=== PATIENT | female | born 1980 | race Two or more races ===

== ENCOUNTER 2017-03-01 13:48 | Emergency (ER) | payer SELFPAY ==
[2017-03-01 14:00] VITALS: BP 124/78
[2017-03-01] MEDS ORDERED: Sodium Chloride 0.9% 10 ML Syringe FLUSH PRN (14:08)
--- NOTE | 2017-03-01 14:16 | EDM.PDOC ---
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 She is not exactly sure on the gestations she has irregular periods and her last one was 7 months ago. She had some cramping like a period this morning and then she had some bleeding with some clots. She has no nausea or vomiting. She has no fever, chills, abdominal pain or dysuria. Onset: Gradual Duration: Hour(s): (Today) Location: Reports: Pelvis Quality: Reports: Other (cramping) Severity: Moderate Improves with: Reports: None Worsens with: Reports: None Associated Symptoms: Reports: No Other Symptoms - Related Data Allergies Allergy/AdvReac Type Severity Reaction Status Date / Time No Known Allergies Allergy Verified 03/09/14 14:40 Home Meds: Home Meds . [No Known Home Meds] 03/01/17 [History] Past Medical History - Past Health History Medical/Surgical History: Denies Medical/Surgical History Social & Family History - Tobacco Use Smoking Status *Q: Never Smoker Second Hand Smoke Exposure: No - Caffeine Use Caffeine Use: Reports: Coffee, Soda - Alcohol Use Days Per Week of Alcohol Use: 0 - Recreational Drug Use Recreational Drug Use: No ED ROS GENERAL - Review of Systems Review Of Systems: See Below Constitutional: Reports: No Symptoms HEENT: Reports: No Symptoms Respiratory: Reports: No Symptoms Cardiovascular: Reports: No Symptoms Endocrine: Reports: No Symptoms GI/Abdominal: Reports: No Symptoms : Reports: Other (vaginal bleeding) Musculoskeletal: Reports: No Symptoms ED EXAM - Physical Exam Exam: See Below Exam Limited By: No Limitations General Appearance: Alert, No Apparent Distress Ears: Normal External Exam Nose: Normal Inspection Head: Atraumatic, Normocephalic Neck: Normal Inspection Respiratory/Chest: No Respiratory Distress, Lungs Clear, Normal Breath Sounds Cardiovascular: Regular Rate, Rhythm, No Edema, No Murmur GI/Abdominal Exam: Soft, Non-Tender, No Organomegaly, No Mass Course - Vital Signs Last Recorded V/S: Last Vital Signs Temp 97.7 F 03/01/17 13:58 Pulse 64 03/01/17 13:58 Resp 20 03/01/17 13:58 BP 124/78 03/01/17 13:58 Pulse Ox 99 03/01/17 13:58 - Orders/Labs/Meds Orders: Active Orders 24 hr Category Date Time Status Pelvic Exam, Set Up [RC] ASDIRECTED Care 03/01/17 14:09 Active Peripheral IV Care [RC] . DIRECTED Care 03/01/17 14:08 Inactive OB Transvaginal [US] Stat Exams 03/01/17 14:09 Taken ABO/RH TYPE [BBK] Stat Lab 03/01/17 14:20 Results PATIENT RETYPE [BBK] Stat Lab 03/01/17 14:20 Results Peripheral IV Insertion Adult [OM.PC] Stat Oth 03/01/17 14:08 Ordered Labs: Laboratory Tests 03/01/17 03/01/17 03/01/17 Range/Units 14:20 14:20 14:20 WBC 6.93 (3.98-10.04) K/mm3 RBC 4.39 (3.98-5.22) M/mm3 Hgb 13.4 (11.2-15.7) gm/L Hct 39.1 (34.1-44.9) % MCV 89.1 (79.4-94.8) fl MCH 30.5 (25.6-32.2) pg MCHC 34.3 (32.2-35.5) g/dl RDW Std Deviation 42.9 (36.4-46.3) fL Plt Count 285 (182-369) K/mm3 MPV 10.1 (9.4-12.3) fl Neut % (Auto) 56.1 (34.0-71.1) % Lymph % (Auto) 36.1 (19.3-51.7) % [place] % (Auto) 5.9 (4.7-12.5) % Eos % (Auto) 1.7 (0.7-5.8) Baso % (Auto) 0.1 (0.1-1.2) % Neut # (Auto) 3.88 (1.56-6.13) K/mm3 Lymph # (Auto) 2.50 (1.18-3.74) K/mm3 [place] # (Auto) 0.41 H (0.24-0.36) K/mm3 Eos # (Auto) 0.12 (0.04-0.36) K/mm3 Baso # (Auto) 0.01 (0.01-0.08) K/mm3 HCG, Quant 3315.0 mIU/mL Blood Type O POSITIVE Meds: Medications Discontinued Medications Generic Name Dose Route Start Last Admin Trade Name Freq PRN Reason Stop Dose Admin Sodium Chloride 10 ml 03/01/17 14:08 Saline Flush FLUSH ASDIRECTED PRN Keep Vein Open - Re-Assessments/Exams Free Text/Narrative Re-Assessment/Exam: 03/01/17 14:16 I ordered labs, pelvic exam and an US. 03/01/17 16:00 Her pelvic exam showed a closed cervical os with some bleeding. Her CBC looks good. She is O positive. Her quant HCG was 3315. The US showed no IUP. She will need to follow up for serial quants with Dr Johnson. This could be an , ectopic or early pergnancy. I feel it is more the . Departure - Departure Time of Disposition: 16:05 Disposition: Home, Self-Care 01 Condition: Good Clinical Impression: Complete - Discharge Information Referrals: Alex Johnson MD [Physician] - 1 Week Forms: ED Department Discharge Additional Instructions: Follow up with Dr Johnson next week. Please return if you have more pain or bleeding. - My Orders Last 24 Hours: My Active Orders 03/01/17 14:08 Peripheral IV Care [RC] . DIRECTED Peripheral IV Insertion Adult [OM.PC] Stat 03/01/17 14:09 Pelvic Exam, Set Up [RC] ASDIRECTED OB Transvaginal [US] Stat 03/01/17 14:20 ABO/RH TYPE [BBK] Stat PATIENT RETYPE [BBK] Stat - Assessment/Plan Last 24 Hours: My Active Orders 03/01/17 14:08 Peripheral IV Care [RC] . DIRECTED Peripheral IV Insertion Adult [OM.PC] Stat 03/01/17 14:09 Pelvic Exam, Set Up [RC] ASDIRECTED OB Transvaginal [US] Stat 03/01/17 14:20 ABO/RH TYPE [BBK] Stat PATIENT RETYPE [BBK] Stat
--- NOTE | 2017-03-02 08:36 | US ---
First trimester obstetrical ultrasound: Multiple real-time images were obtained transvaginally. No intrauterine gestational sac is seen. Cyst noted within the left ovary measuring 3.6 cm. No adnexal abnormalities are appreciated. No free fluid is seen. Impression: 1. No intrauterine gestational sac or adnexal abnormality is seen. If patient has positive test findings most likely due to miscarriage. Depending on patient's beta hCG, differential includes too early to see, and unlikely nonvisualized ectopic . 2. 3.6 cm cyst within the left ovary. Diagnostic code #3 I agree with preliminary report issued by [facility] ([facility] preliminary report dictated on 03/01/17, 4:33 PM Central Time)
== END 2017-03-01 16:07 | disposition home or self-care (01) ==
LOC: JD.ED 13:48
DX: O03.9 Complete or unspecified spontaneous abortion without complication (principal)
CPT/HCPCS: 36415; 76817; 76817-26; 84702; 85025; 86900; 86901; 99282; 99284-25

== ENCOUNTER 2019-10-26 07:55 | Day surgery (SDC) | payer BC, OTHER ==
[2019-10-26] MEDS ORDERED: Metoclopramide 10 MG/2 ML SDV IVPUSH ONE (08:10)
[2019-10-26] MEDS ORDERED: Dextrose 5%-0.9% NaCl 1,000 ML IV SCH (08:15)
--- NOTE | 2019-10-26 08:25 | EDM.PDOC ---
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 She has by herself.) - History of Present Illness INITIAL COMMENTS - FREE TEXT/NARRATIVE: 39-year-old female with [place] descent presents to the ED with heavy bleeding per vagina. She was told on October 15 that she had demise at approximately 16 weeks gestation and that she would be going on to a miscarriage. She states that the bleeding became much more severe overnight passing large amounts of clots and associated lower abdominal cramping pain and right-sided low back pain. She would be 4 para 2. She had 1 miscarriage in between the 2 pregnancies that did not require D&C. The ultrasounds were done outside the hospital and therefore I do not have an exact gestational age of the demised fetus. She states she is been up all night due to cramping pain. She states she would not have soaked a whole pad per hour but is passing very large clots when she stands up to go to the bathroom. No fever or chills. She has had 1 normal vaginal delivery and 1 delivered by C- section. Current data conversion operator is Dr. Hernandez Onset: Other (Patient has bleeding been bleeding per vagina for the last 10 days but today it is much heavier with large amounts of clots.) Onset Date: 10/24/19 Duration: Day(s):, Getting Worse Location: Reports: Other (Bleeding per vagina with increased lower abdominal cramping pain and into her back) Quality: Reports: Other Severity: Moderate (Still cramp-like pain associate with menstrual bleeding) Improves with: Reports: None Worsens with: Reports: None Context: Reports: Other (Apparently she knows she has demise diagnosed by ultrasound 8 days ago at 16 weeks gestation according to the patient.). Denies : Activity, Exercise, Lifting, Sick Contact, Trauma Associated Symptoms: Reports: Other. 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 this morning). Denies: Fever , Chills HEENT: Reports: No Symptoms Respiratory: Reports: No Symptoms Cardiovascular: Reports: No Symptoms Endocrine: Reports: Fatigue GI/Abdominal: Reports: Abdominal Pain (Intermittent lower abdominal cramping pain characteristic of menstrual pain) : Reports: Frequency, Other (The bleeding per vagina overnight with passage of large maroon clots) Musculoskeletal: Reports: Back Pain (Right lower back pain) Skin: Reports: No Symptoms Neurological: Reports: No Symptoms Psychiatric: Reports: No Symptoms Hematologic/Lymphatic: Reports: No Symptoms Immunologic: Reports: No Symptoms ED EXAM - Physical Exam Exam: See Below Exam Limited By: Other (Temperature is listed at 36.2 which is unlikely to be realistic) General Appearance: Alert, WD/WN, Anxious, Mild Distress, Other Eye Exam: Bilateral Eye: Normal Inspection Throat/Mouth: Normal Inspection, Normal Lips, Normal Teeth, Normal Oropharynx ( No blepharal pallor no scleral icterus.) Head: Atraumatic, Normocephalic Neck: Normal Inspection, Supple, Non-Tender, Full Range of Motion. No: Lymphadenopathy (L), Lymphadenopathy (R) Respiratory/Chest: No Respiratory Distress, Lungs Clear, Normal Breath Sounds, No Accessory Muscle Use Cardiovascular: Normal Peripheral Pulses, Regular Rate, Rhythm, No Edema, No Gallop, No Murmur, No Rub GI/Abdominal Exam: Soft (Sounds are active in all 4 quadrants), Non-Tender, No Organomegaly, No Mass, Pelvis Stable, Abnormal Bowel Sounds, Other (Gestational uterus is felt just below the midline between the umbilicus and the pubic symphysis.) (Female) Exam: Other ([place] closed anterior uterus is slightly retroverted but good 12 weeks in size.) Heart Tones: Not [place] Movement: Not Appreciated Back Exam: Normal Inspection, Full Range of Motion. No: CVA Tenderness (R) Extremities: Normal Inspection, Normal Range of Motion, Non-Tender Neurological: Alert, Oriented, CN II-XII Intact, Normal Cognition Psychiatric: Normal Affect, Normal Mood, Anxious Skin Exam: Warm, Dry, Intact, Normal Color, No Rash Course - Vital Signs Last Recorded V/S: Last Vital Signs Temp 36.2 C 10/26/19 08:10 Pulse 71 10/26/19 08:10 Resp 16 10/26/19 08:10 BP 122/77 10/26/19 08:10 Pulse Ox 97 10/26/19 08:10 - Orders/Labs/Meds Orders: Active Orders 24 hr Category Date Time Status Patient Status [ADT] Routine ADT 10/26/19 11:23 Active URINALYSIS W/MICROSCOPIC [UA W/MICROSCOPIC] [URIN] Stat Lab 10/26/19 08:11 Ordered Dextrose 5%-0.9% NaCl [Dextrose 5%-Normal Saline] 1,000 Med 10/26/19 08:15 Active ml IV ASDIRECTED Schedule Procedure [COMM] Stat Oth 10/26/19 11:28 Ordered Medication Orders Dextrose/Sodium Chloride (Dextrose 5%-Normal Saline) 1,000 mls @ 150 mls/hr IV ASDIRECTED [facility] Last Admin: 10/26/19 09:21 Dose: 150 mls/hr Labs: Laboratory Tests 10/26/19 10/26/19 10/26/19 Range/Units 08:20 08:20 08:20 WBC 7.20 (3.98-10.04) K/mm3 RBC 4.38 (3.98-5.22) M/mm3 Hgb 12.9 D (11.2-15.7) gm/dl Hct 39.3 (34.1-44.9) % MCV 89.7 (79.4-94.8) fl MCH 29.5 (25.6-32.2) pg MCHC 32.8 (32.2-35.5) g/dl RDW Std Deviation 42.7 (36.4-46.3) fL Plt Count 290 D (182-369) K/mm3 MPV 10.0 (9.4-12.3) fl Neut % (Auto) 52.0 (34.0-71.1) % Lymph % (Auto) 39.6 (19.3-51.7) % [place] % (Auto) 5.0 (4.7-12.5) % Eos % (Auto) 3.2 (0.7-5.8) Baso % (Auto) 0.1 (0.1-1.2) % Neut # (Auto) 3.74 (1.56-6.13) K/mm3 Lymph # (Auto) 2.85 (1.18-3.74) K/mm3 [place] # (Auto) 0.36 (0.24-0.36) K/mm3 Eos # (Auto) 0.23 (0.04-0.36) K/mm3 Baso # (Auto) 0.01 (0.01-0.08) K/mm3 Sodium 139 (136-145) mEq/L Potassium 3.9 (3.5-5.1) mEq/L Chloride 105 (98-107) mEq/L Carbon Dioxide 27 (21-32) mEq/L Anion Gap 10.9 (5-15) BUN 7 (7-18) mg/dL Creatinine 0.8 (0.55-1.02) mg/dL Est Cr Clr Drug Dosing 86.64 mL/min Estimated GFR (MDRD) > 60 (>60) mL/min BUN/Creatinine Ratio 8.8 L (14-18) Glucose 121 H (74-106) mg/dL Calcium 9.0 (8.5-10.1) mg/dL Total Bilirubin 0.2 (0.2-1.0) mg/dL AST 13 L (15-37) U/L ALT 15 (14-59) U/L Alkaline Phosphatase 83 (46-116) U/L Total Protein 7.5 (6.4-8.2) g/dl Albumin 3.2 L (3.4-5.0) g/dl Globulin 4.3 gm/dL Albumin/Globulin Ratio 0.7 L (1-2) HCG, Quant 1131.0 mIU/mL Blood Type Gel Antibody Screen 10/26/19 Range/Units 08:20 WBC (3.98-10.04) K/mm3 RBC (3.98-5.22) M/mm3 Hgb (11.2-15.7) gm/dl Hct (34.1-44.9) % MCV (79.4-94.8) fl MCH (25.6-32.2) pg MCHC (32.2-35.5) g/dl RDW Std Deviation (36.4-46.3) fL Plt Count (182-369) K/mm3 MPV (9.4-12.3) fl Neut % (Auto) (34.0-71.1) % Lymph % (Auto) (19.3-51.7) % [place] % (Auto) (4.7-12.5) % Eos % (Auto) (0.7-5.8) Baso % (Auto) (0.1-1.2) % Neut # (Auto) (1.56-6.13) K/mm3 Lymph # (Auto) (1.18-3.74) K/mm3 [place] # (Auto) (0.24-0.36) K/mm3 Eos # (Auto) (0.04-0.36) K/mm3 Baso # (Auto) (0.01-0.08) K/mm3 Sodium (136-145) mEq/L Potassium (3.5-5.1) mEq/L Chloride (98-107) mEq/L Carbon Dioxide (21-32) mEq/L Anion Gap (5-15) BUN (7-18) mg/dL Creatinine (0.55-1.02) mg/dL Est Cr Clr Drug Dosing mL/min Estimated GFR (MDRD) (>60) mL/min BUN/Creatinine Ratio (14-18) Glucose (74-106) mg/dL Calcium (8.5-10.1) mg/dL Total Bilirubin (0.2-1.0) mg/dL AST (15-37) U/L ALT (14-59) U/L Alkaline Phosphatase (46-116) U/L Total Protein (6.4-8.2) g/dl Albumin (3.4-5.0) g/dl Globulin gm/dL Albumin/Globulin Ratio (1-2) HCG, Quant mIU/mL Blood Type O POSITIVE Gel Antibody Screen Negative Meds: Medications Generic Name Dose Route Start Last Admin Trade Name Freq PRN Reason Stop Dose Admin Dextrose/Sodium Chloride 1,000 mls @ 150 mls/hr 10/26/19 08:15 10/26/19 09:21 Dextrose 5%-Normal Saline IV 150 mls/hr ASDIRECTED MOOKIE Administration Discontinued Medications Generic Name Dose Route Start Last Admin Trade Name Freq PRN Reason Stop Dose Admin Metoclopramide HCl 7.5 mg 10/26/19 08:10 10/26/19 09:21 Reglan IVPUSH 10/26/19 08:11 7.5 mg ONETIME ONE Administration - Radiology Interpretation Free Text/Narrative:: 39-year-old female presents to the ED with heavy bleeding per vagina. From what I can gather she has a failed at 16 weeks gestation with an ultrasound done 8 days ago at [facility] indicating no heart tones. It is unclear if she actually measured 16 weeks but clinically the uterus is about 12 weeks in size. Alexis no heart tones are identified. Plan she will have a quantitative beta hCG done with type and screen. IV is D5 normal saline at 150 mils per hour. Unfortunately she ate about 0745 hrs. this morning small quantity of egg and rice. Advised to stay n.p.o. Routine labs will be collected. At present she did not want anything for pain relief. Was given Reglan 7.5 mg IV. Will be for transvaginal ultrasound. - Re-Assessments/Exams Free Text/Narrative Re-Assessment/Exam: 10/26/19 09:38 Transvaginal ultrasound reveals a pole of weeks 5 days without any heart tones present. 10/26/19 10:54 Is revealed a white count of 7.20 with 52% neutrophils and no bands cells reported hemoglobin is 12.9 with hematocrit of 39.3. Platelet count is 290,000. Sodium is 139 with potassium of 3.9. Chloride 105 with a bicarb of 27. Anion gap is 10.9. BUN is 7 with a creatinine of 0.8. GFR is greater than 60. Glucose is 121. Calcium is 9.0 bilirubin is 0.2 AST is 13 with an ALT of 15. Alk phosphatase is 83. Total protein is 7.5 albumin fraction slightly low at 3.2. Quantitative hCG is 1131.0. 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 Maribel Hernandez and she will attend the patient in the ED. At this time the bleeding seems to have slowed slightly. She is not having much in the way of abdominal cramping. Dr. Hernandez will attend her in the ED with plan to take her to the OR for suction curettage. Departure - Departure Time of Disposition: 11:34 Disposition: DC/Tfer to Critical Access 66 Condition: Fair Clinical Impression: Incomplete - Discharge Information *PRESCRIPTION DRUG MONITORING PROGRAM REVIEWED*: Not Applicable *COPY OF PRESCRIPTION DRUG MONITORING REPORT IN PATIENT CLYDE: Not Applicable Sepsis Event Note - Evaluation Sepsis Screening Result: No Definite Risk - Focused Exam Vital Signs: Vital Signs Temp Pulse Resp BP Pulse Ox 10/26/19 08:10 36.2 C 71 16 122/77 97 Date Exam was Performed: 10/26/19 Time Exam was Performed: 11:33 - My Orders Last 24 Hours: My Active Orders 10/26/19 08:11 URINALYSIS W/MICROSCOPIC [UA W/MICROSCOPIC] [URIN] Stat 10/26/19 08:15 Dextrose 5%-0.9% NaCl [Dextrose 5%-Normal Saline] 1,000 ml IV ASDIRECTED 10/26/19 11:23 Patient Status [ADT] Routine 10/26/19 11:28 Schedule Procedure [COMM] Stat - Assessment/Plan Last 24 Hours: My Active Orders 10/26/19 08:11 URINALYSIS W/MICROSCOPIC [UA W/MICROSCOPIC] [URIN] Stat 10/26/19 08:15 Dextrose 5%-0.9% NaCl [Dextrose 5%-Normal Saline] 1,000 ml IV ASDIRECTED 10/26/19 11:23 Patient Status [ADT] Routine 10/26/19 11:28 Schedule Procedure [COMM] Stat
--- NOTE | 2019-10-26 09:37 | US ---
First trimester obstetrical ultrasound: Multiple real-time images were obtained transvaginally. Comparison: No previous imaging for current . Single intrauterine gestation is seen. Embryo is seen measuring about 8 weeks 6 days. No heart activity is seen. Ovaries appear within normal limits. Impression: 1. Embryo with age around 8 weeks 6 days. No heart activity is seen which should be visible at this time. Findings compatible with nonviable . 2. Normal ovaries. Diagnostic code #3 This report was dictated in MDT
--- NOTE | 2019-10-26 11:36 | PCM.PREANE ---
Preanesthetic Assessment - Anesthesia/Transfusion/Family Hx Anesthesia History: Prior Anesthesia Without Reaction Family History of Anesthesia Reaction: No Transfusion History: No Prior Transfusion(s) Intubation History: Unknown - Review of Systems General: No Symptoms Pulmonary: No Symptoms (asthma-last used inhaler 5-7 yrs.) Cardiovascular: No Symptoms Gastrointestinal: No Symptoms (GERD) Neurological: No Symptoms - Physical Assessment NPO Status Date: 10/26/19 NPO Status Time: 07:45 Vital Signs: Last Vital Signs Temp 36.2 C 10/26/19 08:10 Pulse 71 10/26/19 08:10 Resp 16 10/26/19 08:10 BP 122/77 10/26/19 08:10 Pulse Ox 97 10/26/19 08:10 Height: 1.65 m Weight: 83.915 kg ASA Class: 2E Mental Status: Alert & Oriented x3 Airway Class: Mallampati = 2 Dentition: Reports: Normal Dentition, Caries Thyro-Mental Finger Breadths: 3 Mouth Opening Finger Breadths: 3 ROM/Head Extension: Full Lungs: Clear to Auscultation, Normal Respiratory Effort Cardiovascular: Regular Rate, Regular Rhythm, No Murmurs - Lab Values: Laboratory Last Values WBC 7.20 K/mm3 (3.98-10.04) 10/26/19 08:20 RBC 4.38 M/mm3 (3.98-5.22) 10/26/19 08:20 Hgb 12.9 gm/dl (11.2-15.7) D 10/26/19 08:20 Hct 39.3 % (34.1-44.9) 10/26/19 08:20 MCV 89.7 fl (79.4-94.8) 10/26/19 08:20 MCH 29.5 pg (25.6-32.2) 10/26/19 08:20 MCHC 32.8 g/dl (32.2-35.5) 10/26/19 08:20 RDW Std Deviation 42.7 fL (36.4-46.3) 10/26/19 08:20 Plt Count 290 K/mm3 (182-369) D 10/26/19 08:20 MPV 10.0 fl (9.4-12.3) 10/26/19 08:20 Neut % (Auto) 52.0 % (34.0-71.1) 10/26/19 08:20 Lymph % (Auto) 39.6 % (19.3-51.7) 10/26/19 08:20 [place] % (Auto) 5.0 % (4.7-12.5) 10/26/19 08:20 Eos % (Auto) 3.2 (0.7-5.8) 10/26/19 08:20 Baso % (Auto) 0.1 % (0.1-1.2) 10/26/19 08:20 Neut # (Auto) 3.74 K/mm3 (1.56-6.13) 10/26/19 08:20 Lymph # (Auto) 2.85 K/mm3 (1.18-3.74) 10/26/19 08:20 [place] # (Auto) 0.36 K/mm3 (0.24-0.36) 10/26/19 08:20 Eos # (Auto) 0.23 K/mm3 (0.04-0.36) 10/26/19 08:20 Baso # (Auto) 0.01 K/mm3 (0.01-0.08) 10/26/19 08:20 Sodium 139 mEq/L (136-145) 10/26/19 08:20 Potassium 3.9 mEq/L (3.5-5.1) 10/26/19 08:20 Chloride 105 mEq/L (98-107) 10/26/19 08:20 Carbon Dioxide 27 mEq/L (21-32) 10/26/19 08:20 Anion Gap 10.9 (5-15) 10/26/19 08:20 BUN 7 mg/dL (7-18) 10/26/19 08:20 Creatinine 0.8 mg/dL (0.55-1.02) 10/26/19 08:20 Est Cr Clr Drug Dosing 86.64 mL/min 10/26/19 08:20 Estimated GFR (MDRD) > 60 mL/min (>60) 10/26/19 08:20 BUN/Creatinine Ratio 8.8 (14-18) L 10/26/19 08:20 Glucose 121 mg/dL (74-106) H 10/26/19 08:20 Calcium 9.0 mg/dL (8.5-10.1) 10/26/19 08:20 Total Bilirubin 0.2 mg/dL (0.2-1.0) 10/26/19 08:20 AST 13 U/L (15-37) L 10/26/19 08:20 ALT 15 U/L (14-59) 10/26/19 08:20 Alkaline Phosphatase 83 U/L (46-116) 10/26/19 08:20 Total Protein 7.5 g/dl (6.4-8.2) 10/26/19 08:20 Albumin 3.2 g/dl (3.4-5.0) L 10/26/19 08:20 Globulin 4.3 gm/dL 10/26/19 08:20 Albumin/Globulin Ratio 0.7 (1-2) L 10/26/19 08:20 HCG, Quant 1131.0 mIU/mL 10/26/19 08:20 Blood Type O POSITIVE 10/26/19 08:20 Gel Antibody Screen Negative 10/26/19 08:20 Above labs reviewed and noted and within acceptable ranges to proceed with procedure. - Allergies Allergies/Adverse Reactions: Allergies Allergy/AdvReac Type Severity Reaction Status Date / Time No Known Allergies Allergy Verified 10/26/19 08:12 - Anesthesia Plan Pre-Op Medication Ordered: None - Acknowledgements Anesthesia Type Planned: General Anesthesia Pt an Appropriate Candidate for the Planned Anesthesia: Yes Alternatives and Risks of Anesthesia Discussed w Pt/Guardian: Yes Pt/Guardian Understands and Agrees with Anesthesia Plan: Yes PreAnesthesia Questionnaire - Past Health History Medical/Surgical History: Denies Medical/Surgical History Gastrointestinal History: Reports: GERD 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 [No Known Home Meds] 10/26/19 [History] - CURRENT (IN HOUSE) MEDS Current Meds: Current Medications Dextrose/Sodium Chloride (Dextrose 5%-Normal Saline) 1,000 mls @ 150 mls/hr IV ASDIRECTED MOOKIE Last Admin: 10/26/19 09:21 Dose: 150 mls/hr Discontinued Medications Metoclopramide HCl (Reglan) 7.5 mg IVPUSH ONETIME ONE Stop: 10/26/19 08:11 Last Admin: 10/26/19 09:21 Dose: 7.5 mg
[2019-10-26] MEDS ORDERED: Lidocaine 1% 6 ML ONE (11:49)
[2019-10-26] MEDS ORDERED: Ondansetron 4 MG/2 ML SDV ONE (11:49)
[2019-10-26] MEDS ORDERED: Ketorolac 30 MG/ML SDV ONE (11:49)
[2019-10-26] MEDS ORDERED: Lactated Ringers 1,000 ML ONE ×2 (11:49→12:11)
[2019-10-26] MEDS ORDERED: Dexamethasone 4 MG/ML 5 ML MDV ONE (11:49)
[2019-10-26] MEDS ORDERED: Succinylcholine/Sod PF 100 MG/5 ML SYRINGE IV ONE (11:49)
[2019-10-26] MEDS ORDERED: Midazolam 1 MG/ML 2 ML SDV ONE (11:50)
[2019-10-26] MEDS ORDERED: Propofol 200 MG/20 ML SDV ONE (11:50)
[2019-10-26] MEDS ORDERED: fentaNYL 100 MCG/2 ML SDV ONE (11:50)
--- NOTE | 2019-10-26 11:56 | PCM.LDHP ---
L&D History of Present Illness - General Date of Service: 10/26/19 Admit Problem/Dx: Patient Status Order with Admit Dx/Problem 10/26/19 11:23 Patient Status [ADT] Routine Admission Diagnosis/Problem Admission Diagnosis/Problem Spontaneous complicated by delayed or excessive hemorrhage Source of Information: Patient - History of Present Illness Introduction:: 39 year old with known missed here with incomplete and bleeding that started a few hours ago. - Related Data Allergies/Adverse Reactions: Allergies Allergy/AdvReac Type Severity Reaction Status Date / Time No Known Allergies Allergy Verified 10/26/19 08:12 Home Medications: Home Meds . 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: , Other (See Below) Other OB/BYN History: Social & Family History - Family History Family Medical History: Noncontributory - Tobacco Use Smoking Status *Q: Never Smoker - Caffeine Use Caffeine Use: Reports: None - Living Situation & Occupation Living situation: Reports: Occupation: Unemployed H&P Review of Systems - Review of Systems: Review Of Systems: See Below General: Reports: No Symptoms HEENT: Reports: No Symptoms Pulmonary: Reports: No Symptoms Cardiovascular: Reports: No Symptoms Gastrointestinal: Reports: No Symptoms Genitourinary: Reports: No Symptoms Musculoskeletal: Reports: No Symptoms Skin: Reports: No Symptoms Psychiatric: Reports: No Symptoms Neurological: Reports: No Symptoms Hematologic/Lymphatic: Reports: No Symptoms Immunologic: Reports: No Symptoms L&D Exam - Exam Exam: See Below - Vital Signs Vital Signs: Last Vital Signs Temp 36.2 C 10/26/19 08:10 Pulse 71 10/26/19 08:10 Resp 16 10/26/19 08:10 BP 122/77 10/26/19 08:10 Pulse Ox 97 10/26/19 08:10 Weight: 83.915 kg - OB Specific Movement: Not Appreciated Heart Tones: Not [place] - Exam General: Alert, Oriented HEENT: PERRLA, Conjunctiva Clear, EACs Clear, EOMI, Hearing Intact, Mucosa Moist & [place], Nares Patent, Normal Nasal Septum, Posterior Pharynx Clear, TMs Clear Neck: Supple, Trachea Midline GI/Abdominal Exam: Normal Bowel Sounds, Soft, Non-Tender, No Organomegaly, No Distention, No Abnormal Bruit, No Mass, Pelvis Stable Rectal Exam: Normal Exam, Normal Rectal Tone Genitourinary: Normal external exam, Normal bimanual exam, Normal speculum exam Extremities: Normal Inspection, Normal Range of Motion, Non-Tender, No Pedal Edema, Normal Capillary Refill Skin: Warm, Dry, Intact Neurological: Cranial Nerves Intact, Reflexes Equal Bilateral Psychiatric: Alert, Normal Affect, Normal Mood - Patient Data Lab Results Last 24 hrs: Laboratory Results - last 24 hr 10/26/19 10/26/19 10/26/19 Range/Units 08:20 08:20 08:20 WBC 7.20 (3.98-10.04) K/mm3 RBC 4.38 (3.98-5.22) M/mm3 Hgb 12.9 D (11.2-15.7) gm/dl Hct 39.3 (34.1-44.9) % MCV 89.7 (79.4-94.8) fl MCH 29.5 (25.6-32.2) pg MCHC 32.8 (32.2-35.5) g/dl RDW Std Deviation 42.7 (36.4-46.3) fL Plt Count 290 D (182-369) K/mm3 MPV 10.0 (9.4-12.3) fl Neut % (Auto) 52.0 (34.0-71.1) % Lymph % (Auto) 39.6 (19.3-51.7) % [place] % (Auto) 5.0 (4.7-12.5) % Eos % (Auto) 3.2 (0.7-5.8) Baso % (Auto) 0.1 (0.1-1.2) % Neut # (Auto) 3.74 (1.56-6.13) K/mm3 Lymph # (Auto) 2.85 (1.18-3.74) K/mm3 [place] # (Auto) 0.36 (0.24-0.36) K/mm3 Eos # (Auto) 0.23 (0.04-0.36) K/mm3 Baso # (Auto) 0.01 (0.01-0.08) K/mm3 Sodium 139 (136-145) mEq/L Potassium 3.9 (3.5-5.1) mEq/L Chloride 105 (98-107) mEq/L Carbon Dioxide 27 (21-32) mEq/L Anion Gap 10.9 (5-15) BUN 7 (7-18) mg/dL Creatinine 0.8 (0.55-1.02) mg/dL Est Cr Clr Drug Dosing 86.64 mL/min Estimated GFR (MDRD) > 60 (>60) mL/min BUN/Creatinine Ratio 8.8 L (14-18) Glucose 121 H (74-106) mg/dL Calcium 9.0 (8.5-10.1) mg/dL Total Bilirubin 0.2 (0.2-1.0) mg/dL AST 13 L (15-37) U/L ALT 15 (14-59) U/L Alkaline Phosphatase 83 (46-116) U/L Total Protein 7.5 (6.4-8.2) g/dl Albumin 3.2 L (3.4-5.0) g/dl Globulin 4.3 gm/dL Albumin/Globulin Ratio 0.7 L (1-2) HCG, Quant 1131.0 mIU/mL Blood Type Gel Antibody Screen 10/26/19 Range/Units 08:20 WBC (3.98-10.04) K/mm3 RBC (3.98-5.22) M/mm3 Hgb (11.2-15.7) gm/dl Hct (34.1-44.9) % MCV (79.4-94.8) fl MCH (25.6-32.2) pg MCHC (32.2-35.5) g/dl RDW Std Deviation (36.4-46.3) fL Plt Count (182-369) K/mm3 MPV (9.4-12.3) fl Neut % (Auto) (34.0-71.1) % Lymph % (Auto) (19.3-51.7) % [place] % (Auto) (4.7-12.5) % Eos % (Auto) (0.7-5.8) Baso % (Auto) (0.1-1.2) % Neut # (Auto) (1.56-6.13) K/mm3 Lymph # (Auto) (1.18-3.74) K/mm3 [place] # (Auto) (0.24-0.36) K/mm3 Eos # (Auto) (0.04-0.36) K/mm3 Baso # (Auto) (0.01-0.08) K/mm3 Sodium (136-145) mEq/L Potassium (3.5-5.1) mEq/L Chloride (98-107) mEq/L Carbon Dioxide (21-32) mEq/L Anion Gap (5-15) BUN (7-18) mg/dL Creatinine (0.55-1.02) mg/dL Est Cr Clr Drug Dosing mL/min Estimated GFR (MDRD) (>60) mL/min BUN/Creatinine Ratio (14-18) Glucose (74-106) mg/dL Calcium (8.5-10.1) mg/dL Total Bilirubin (0.2-1.0) mg/dL AST (15-37) U/L ALT (14-59) U/L Alkaline Phosphatase (46-116) U/L Total Protein (6.4-8.2) g/dl Albumin (3.4-5.0) g/dl Globulin gm/dL Albumin/Globulin Ratio (1-2) HCG, Quant mIU/mL Blood Type O POSITIVE Gel Antibody Screen Negative Result Diagrams: 10/26/19 08:20 10/26/19 08:20 Problem List Initiated/Reviewed/Updated: Yes Orders Last 24hrs: Active Orders 24 hr Category Date Time Status Patient Status [ADT] Routine ADT 10/26/19 11:23 Active URINALYSIS W/MICROSCOPIC [UA W/MICROSCOPIC] [URIN] Stat Lab 10/26/19 08:11 Ordered Dextrose 5%-0.9% NaCl [Dextrose 5%-Normal Saline] 1,000 Med 10/26/19 08:15 Active ml IV ASDIRECTED Schedule Procedure [COMM] Stat Oth 10/26/19 11:28 Ordered Medication Orders Dextrose/Sodium Chloride (Dextrose 5%-Normal Saline) 1,000 mls @ 150 mls/hr IV ASDIRECTED MOOKIE Last Admin: 10/26/19 09:21 Dose: 150 mls/hr Assessment/Plan Comment:: 39 year old here with missed . Risks, benefits alternatives discussed and plan for suction dilation and curettage.
[2019-10-26] MEDS ORDERED: HYDROmorphone 0.5 MG/0.5 ML Syringe ONE (12:25)
[2019-10-26] MEDS ORDERED: ePHEDrine 50 MG/ML SDV IVPUSH PRN (12:27)
[2019-10-26] MEDS ORDERED: Albuterol 0.083% 2.5 MG/3 ML Neb Soln NEB PRN (12:27)
[2019-10-26] MEDS ORDERED: diphenhydrAMINE 50 MG/ML SDV IVPUSH PRN (12:27)
[2019-10-26] MEDS ORDERED: HYDROmorphone 0.5 MG/0.5 ML Syringe IVPUSH PRN (12:27)
[2019-10-26] MEDS ORDERED: fentaNYL 100 MCG/2 ML SDV IVPUSH PRN (12:27)
[2019-10-26] MEDS ORDERED: Ondansetron 4 MG/2 ML SDV IVPUSH PRN (12:27)
[2019-10-26] MEDS ORDERED: Phenylephrine 1 MG in Sodium Chloride 0.9% 10 ML IV SCH (12:30)
--- NOTE | 2019-10-26 12:52 | PCM.POSTAN ---
POST ANESTHESIA ASSESSMENT - MENTAL STATUS Mental Status: Alert - VITAL SIGNS Vital Signs: Last Vital Signs Temp 97.2 10/26/19 1243 Pulse 67 10/26/19 1243 Resp 15 10/26/19 1243 BP 114/68 10/26/19 1243 Pulse Ox 94% 10/26/19 1243 - RESPIRATORY Respiratory Status: Respiratory Rate WNL, Airway Patent, O2 Saturation Stable - CARDIOVASCULAR CV Status: Pulse Rate WNL, Blood Pressure Stable - GASTROINTESTINAL GI Status: No Symptoms - POST OP HYDRATION Hydration Status: Adequate & Stable
--- NOTE | 2019-10-26 12:57 | PCM.OPNOTE ---
- General Post-Op/Procedure Note Date of Surgery/Procedure: 10/26/19 Operative Procedure(s): suction dilation and curettage Findings: 10 week size uterus. Blood in vault Pre Op Diagnosis: missed with bleeding Post-Op Diagnosis: Same Anesthesia Technique: General ET Tube Primary Surgeon: Maribel Charles Anesthesia Provider: Zaida Becker Pathology: products of conception Fluid Replacement, Intraop: 800 Output, Urine Amount: 0 EBL in mLs: 100 Complications: none Condition: Good Free Text/Narrative:: Patient taken to OR. General anesthesia initiated. Placed in lithotomy. Prepped and draped in normal sterile fashion. Self retaining speculum placed. Anterior lip of cervix grasped with ring forceps. Dilated to allow passage of a 10 mm curette. Suction curettage preformed. Good thuan noted. Hemostasis noted. INstruments removed and patient taken to recovery in good condition.
--- NOTE | 2019-10-26 13:03 | PCM48HPAN ---
Post Anesthesia Note - EVALUATION WITHIN 48HRS OF ANESTHETIC Vital Signs in Normal Range: Yes Patient Participated in Evaluation: Yes Respiratory Function Stable: Yes Airway Patent: Yes Cardiovascular Function Stable: Yes Hydration Status Stable: Yes Pain Control Satisfactory: Yes Nausea and Vomiting Control Satisfactory: Yes Mental Status Recovered: Yes Vital Signs: Last Vital Signs Temp 36.2 C 10/26/19 12:43 Pulse 71 10/26/19 08:10 Resp 12 10/26/19 12:50 BP 113/71 10/26/19 12:50 Pulse Ox 96 10/26/19 12:50
[2019-10-26 13:59] VITALS: BP 109/75; PULSE 58
== END 2019-10-26 13:51 | disposition home or self-care (01) ==
LOC: JD.ED 07:55 → JD.SDS 11:29
PROVIDERS: ATTEND Obstetrics & Gynecology
DX: O02.1 Missed abortion (principal)
CPT/HCPCS: 36415; 59820; 76817; 80053; 84702; 85025; 86850; 86900; 86901; 96361; 96374; 99285; J0330; J1100; J1170; J1885; J2001; J2250; J2405; J2704; J2765; J3010; J7042; J7120; 01965; 99284

== ENCOUNTER 2020-02-24 23:39 | Emergency (ER) | payer OTHER ==
[2020-02-24 23:54] VITALS: BP 137/91; PULSE 72
--- NOTE | 2020-02-25 03:06 | EDM.PDOC ---
ED HPI GENERAL MEDICAL PROBLEM - General Chief Complaint: Respiratory Problem Stated Complaint: SOB Time Seen by Provider: 02/25/20 02:11 Source of Information: Reports: Patient History Limitations: Reports: No Limitations - History of Present Illness INITIAL COMMENTS - FREE TEXT/NARRATIVE: Mrs. Loredo is a very pleasant 40-year-old woman with a past medical history significant for suspected, although not tested, asthma, who now presents the ED stating that she has had dyspnea without wheezing or cough since yesterday morning, 02/24/2020. No recent fever. She states that she used an old albuterol MDI around noon yesterday, which improved her symptoms for much of the day, followed by [id number] Primatene Mist around 22:00 last night, which did not really help very much at all. Here in the ED, the patient's initial BP is found to be mildly elevated at 137/91, otherwise, she is hemodynamically stable, afebrile, saturating 99 to 100% on room air. Other than her respiratory issues, the patient denies recent fever, chills, sore throat, ear pain, nasal or sinus congestion, cough, chest pain, palpitations, nausea, vomiting, constipation, diarrhea, abdominal pain, urinary symptoms, recent weight gain or weight loss, recent bloody bowel movements or black bowel movements, recent joint aches, headaches, or rashes. The patient does not have a PCP. 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 - Related Data Allergies Allergy/AdvReac Type Severity Reaction Status Date / Time No Known Allergies Allergy Verified 02/24/20 23:54 Home Meds: Home Meds . 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) : 4 Para: 2 Endocrine/Metabolic History: Reports: Obesity/BMI 30+ - Past Surgical History Female Surgical History: Reports: Section (x 1) Social & Family History - Family History Family Medical History: Noncontributory - Tobacco Use Smoking Status *Q: Never Smoker - Caffeine Use Caffeine Use: Reports: Coffee - Alcohol Use Alcohol Use History: Yes Alcohol Use Frequency: Rarely - Recreational Drug Use Recreational Drug Use: No - Living Situation & Occupation Living situation: Reports: , with Spouse, with Family (2 kids) Occupation: Unemployed ED ROS GENERAL - Review of Systems Review Of Systems: Comprehensive ROS is negative, except as noted in HPI. ED EXAM, GENERAL - Physical Exam Exam: See Below Exam Limited By: No Limitations General Appearance: Alert, WD/WN, No Apparent Distress Eye Exam: Bilateral Eye: EOMI, Normal Inspection Ears: Normal External Exam, Hearing Grossly Normal Nose: Normal Inspection Throat/Mouth: Normal Inspection, Normal Lips, Normal Voice, No Airway Compromise Head: Atraumatic, Normocephalic Neck: Normal Inspection, Full Range of Motion Respiratory/Chest: No Respiratory Distress, Lungs Clear, Normal Breath Sounds, No Accessory Muscle Use. No: Decreased Breath Sounds, Crackles, Rhonchi, Wheezing, Stridor, Prolonged Expiration Cardiovascular: Normal Peripheral Pulses, Regular Rate, Rhythm, No Edema, No Gallop, No JVD, No Murmur, No Rub Peripheral Pulses: 3+: Radial (L), Radial (R) GI/Abdominal: Normal Bowel Sounds, Soft, Non-Tender, No Organomegaly, No Distention, No Abnormal Bruit, No Mass (Female) Exam: Deferred Rectal (Female) Exam: Deferred Back Exam: Normal Inspection, Full Range of Motion, NT Extremities: Normal Inspection, Normal Range of Motion, No Pedal Edema, Normal Capillary Refill Neurological: Alert, Oriented, Normal Cognition, No Motor/Sensory Deficits Psychiatric: Normal Affect Skin Exam: Warm, Dry, Intact, Normal Color, No Rash Course - Vital Signs Last Recorded V/S: Last Vital Signs Temp 36.6 C 02/24/20 23:50 Pulse 72 02/24/20 23:50 Resp 20 02/24/20 23:50 BP 137/91 H 02/24/20 23:50 Pulse Ox 99 02/24/20 23:50 - Orders/Labs/Meds Labs: Laboratory Tests 02/25/20 02/25/20 02/25/20 Range/Units 03:20 03:20 03:20 WBC 7.32 (3.98-10.04) K/mm3 RBC 4.48 (3.98-5.22) M/mm3 Hgb 13.3 (11.2-15.7) gm/dl Hct 40.2 (34.1-44.9) % MCV 89.7 (79.4-94.8) fl MCH 29.7 (25.6-32.2) pg MCHC 33.1 (32.2-35.5) g/dl RDW Std Deviation 42.0 (36.4-46.3) fL Plt Count 313 (182-369) K/mm3 MPV 9.9 (9.4-12.3) fl Neutrophils % (Manual) 45 (40-60) % Band Neutrophils % 0 (0-10) % Lymphocytes % (Manual) 50 H (20-40) % Atypical Lymphs % 0 % Monocytes % (Manual) 5 (2-10) % Eosinophils % (Manual) 0 L (0.7-5.8) % Basophils % (Manual) 0 L (0.1-1.2) Platelet Estimate Adequate Plt Morphology Comment Normal RBC Morph Comment Normal D-Dimer, Quantitative 0.74 H (0.19-0.50) mg/L Sodium 140 (136-145) mEq/L Potassium 4.1 (3.5-5.1) mEq/L Chloride 104 (98-107) mEq/L Carbon Dioxide 27 (21-32) mEq/L Anion Gap 13.1 (5-15) BUN 16 (7-18) mg/dL Creatinine 0.8 (0.55-1.02) mg/dL Est Cr Clr Drug Dosing 85.80 mL/min Estimated GFR (MDRD) > 60 (>60) mL/min BUN/Creatinine Ratio 20.0 H (14-18) Glucose 99 (74-106) mg/dL Calcium 9.0 (8.5-10.1) mg/dL Total Bilirubin 0.2 (0.2-1.0) mg/dL AST 14 L (15-37) U/L ALT 18 (14-59) U/L Alkaline Phosphatase 98 (46-116) U/L NT-Pro-B Natriuret Pep (0-125) pg/mL Total Protein 8.2 (6.4-8.2) g/dl Albumin 3.9 (3.4-5.0) g/dl Globulin 4.3 gm/dL Albumin/Globulin Ratio 0.9 L (1-2) 07/18/20 Range/Units 03:20 WBC (3.98-10.04) K/mm3 RBC (3.98-5.22) M/mm3 Hgb (11.2-15.7) gm/dl Hct (34.1-44.9) % MCV (79.4-94.8) fl MCH (25.6-32.2) pg MCHC (32.2-35.5) g/dl RDW Std Deviation (36.4-46.3) fL Plt Count (182-369) K/mm3 MPV (9.4-12.3) fl Neutrophils % (Manual) (40-60) % Band Neutrophils % (0-10) % Lymphocytes % (Manual) (20-40) % Atypical Lymphs % % Monocytes % (Manual) (2-10) % Eosinophils % (Manual) (0.7-5.8) % Basophils % (Manual) (0.1-1.2) Platelet Estimate Plt Morphology Comment RBC Morph Comment D-Dimer, Quantitative (0.19-0.50) mg/L Sodium (136-145) mEq/L Potassium (3.5-5.1) mEq/L Chloride (98-107) mEq/L Carbon Dioxide (21-32) mEq/L Anion Gap (5-15) BUN (7-18) mg/dL Creatinine (0.55-1.02) mg/dL Est Cr Clr Drug Dosing mL/min Estimated GFR (MDRD) (>60) mL/min BUN/Creatinine Ratio (14-18) Glucose (74-106) mg/dL Calcium (8.5-10.1) mg/dL Total Bilirubin (0.2-1.0) mg/dL AST (15-37) U/L ALT (14-59) U/L Alkaline Phosphatase (46-116) U/L NT-Pro-B Natriuret Pep 20 (0-125) pg/mL Total Protein (6.4-8.2) g/dl Albumin (3.4-5.0) g/dl Globulin gm/dL Albumin/Globulin Ratio (1-2) - Re-Assessments/Exams Free Text/Narrative Re-Assessment/Exam: 02/25/20 03:03 As above, the patient has had dyspnea on and off since yesterday morning, but no wheezing or coughing, and no recent fever. Albuterol helped with her symptoms yesterday, while Primatene Mist did not help very much last night. Here in the ED, the patient is saturating 99 to 100% on room air, and on examination, her lungs are entirely clear to auscultation bilaterally with no wheezing or prolonged exhalation. I have ordered a work-up that includes some blood work and a chest x-ray. 02/25/20 04:07 Two-view chest radiograph appears to be grossly normal. The cardiac silhouette is within normal limits. No pulmonary vascular congestion. No pleural effusions. No focal infiltrate. No pneumothorax. Formal read per the Radiologist pending. The patient's CBC is unremarkable. Her CMP is unremarkable. Her D-dimer is mildly elevated at 0.74. Her BNP is within normal limits at 20. 02/25/20 04:20 Test results discussed with the patient. As above, other than a mildly elevated D-dimer, today's work-up is completely unremarkable. I explained to the patient that I do not believe her mildly elevated D-dimer is sales representative advertising of a pulmonary embolus, because pulmonary emboli typically cause much higher D- dimers than 0.74. I therefore did not recommend a CT angiogram of the chest, although I did offer one if she felt strongly about it. She did not, and stated that she is feeling well and would like to go home. Departure - Departure Time of Disposition: 04:21 Disposition: Home, Self-Care 01 Condition: Good Clinical Impression: Dyspnea - Discharge Information *PRESCRIPTION DRUG MONITORING PROGRAM REVIEWED*: Not Applicable *COPY OF PRESCRIPTION DRUG MONITORING REPORT IN PATIENT CLYDE: Not Applicable Referrals: Maribel Charles MD [Physician] - Forms: ED Department Discharge Additional Instructions: You were seen in the emergency room after developing shortness of breath yesterday morning, which improved after using an albuterol MDI, but not so much after using a Primatene inhaler. Work-up in the ER included blood work and a chest x-ray, all of which were unremarkable. You do not have pneumonia. You do not have a collapsed lung. You do not have congestive heart failure you do not have a blood clot in your lungs. You are not suffering from an asthma exacerbation. As discussed, your shortness of breath appears to be due to anxiety. No specific treatment is required, however, if your symptoms continue to recur, we recommend that you follow-up with your PCP to discuss treatment options for anxiety. If any other problems, please do not hesitate to return to the ER. Sepsis Event Note (ED) - Evaluation Sepsis Screening Result: No Definite Risk
--- NOTE | 2020-02-27 05:56 | CR ---
Chest: 2 views of the chest were obtained. Comparison: No prior chest imaging is available. Heart size and mediastinum are normal. Lungs are clear with no acute parenchymal change. Bony structures are unremarkable. Impression: 1. Nothing acute is seen on 2 view chest x-ray. Diagnostic code #1 This report was dictated in MDT
== END 2020-02-25 04:30 | disposition home or self-care (01) ==
LOC: JD.ED 23:39
DX: R06.02 Shortness of breath (principal); E66.9 Obesity, unspecified; Z68.34 Body mass index [BMI] 34.0-34.9, adult
CPT/HCPCS: 36415; 71046; 71046-26; 80053; 83880; 85007; 85027; 85379; 99285-25

== ENCOUNTER 2020-11-15 06:24 | Inpatient (IN) | payer OTHER ==
--- NOTE | 2020-11-15 07:36 | PCM.PREANE ---
Preanesthetic Assessment - Procedure Proposed Procedure: Repeat C Section - Anesthesia/Transfusion/Family Hx Anesthesia History: Prior Anesthesia Without Reaction Family History of Anesthesia Reaction: No Transfusion History: No Prior Transfusion(s) Intubation History: Unknown - Review of Systems General: No Symptoms Pulmonary: Other (Asthma, inhaler used last 2-3 months ago. Well controlled. ) Cardiovascular: No Symptoms Gastrointestinal: Other (Heart Burn with . ) Neurological: No Symptoms Other: Reports: None - Physical Assessment Weight: 91 kg ASA Class: 2 Mental Status: Alert & Oriented x3 Airway Class: Mallampati = 1 Dentition: Reports: Normal Dentition Thyro-Mental Finger Breadths: 3 Mouth Opening Finger Breadths: 2 ROM/Head Extension: Full Lungs: Clear to Auscultation, Normal Respiratory Effort Cardiovascular: Regular Rate, Regular Rhythm - Lab Values: Reviewed and acceptable limits to proceed. PLT 255 Covid Negative - Allergies Allergies/Adverse Reactions: Allergies Allergy/AdvReac Type Severity Reaction Status Date / Time No Known Allergies Allergy Verified 11/15/20 08:30 - Anesthesia Plan Pre-Op Medication Ordered: Other (Metoclopramide and Bicitra ) - Acknowledgements Anesthesia Type Planned: Spinal Pt an Appropriate Candidate for the Planned Anesthesia: Yes Alternatives and Risks of Anesthesia Discussed w Pt/Guardian: Yes Pt/Guardian Understands and Agrees with Anesthesia Plan: Yes PreAnesthesia Questionnaire - Past Health History Medical/Surgical History: Denies Medical/Surgical History Respiratory History: Reports: Asthma (suspected, not tested) Gastrointestinal History: Reports: GERD 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
[2020-11-15] MEDS ORDERED: Lactated Ringers 1,000 ML ONE ×2 (08:12→10:03)
[2020-11-15] MEDS ORDERED: fentaNYL 100 MCG/2 ML SDV ONE (08:27)
[2020-11-15] MEDS ORDERED: Morphine PF 10 MG/10 ML SDV ONE (08:27)
[2020-11-15] MEDS ORDERED: Sodium Chloride 0.9% 10 ML Syringe FLUSH PRN (08:31)
[2020-11-15] MEDS ORDERED: Metoclopramide 10 MG/2 ML SDV IVPUSH ONE (08:31)
[2020-11-15] MEDS ORDERED: ceFAZolin 2 GM in Premix Bag 1 BAG IV ONE (08:31)
[2020-11-15] MEDS ORDERED: Citric Acid/Sodium Citrate Solution 30 ML Cup PO ONE (08:31)
[2020-11-15] MEDS ORDERED: Oxytocin/Lactated Ringers 10 UNIT/1,000 ML BAG IV SCH (08:45)
[2020-11-15] MEDS: Lactated Ringers 1,000 ML IV SCH ×2 (09:05→11:53)
[2020-11-15] MEDS ORDERED: Bupivacaine 0.5% 30 ML SDV ONE (09:17)
[2020-11-15] MEDS ORDERED: Oxytocin 10 Units/1 ML SDV ONE (09:19)
[2020-11-15] MEDS ORDERED: ceFAZolin 1 GM Vial ONE (09:19)
[2020-11-15] MEDS ORDERED: ePHEDrine 50 MG/ML SDV ONE (09:54)
[2020-11-15] MEDS ORDERED: Ondansetron 4 MG/2 ML SDV IVPUSH PRN (10:20)
[2020-11-15] MEDS ORDERED: diphenhydrAMINE 50 MG/ML SDV IVPUSH PRN ×2 (10:20→13:41)
[2020-11-15] MEDS ORDERED: fentaNYL 100 MCG/2 ML SDV IVPUSH PRN (10:20)
[2020-11-15] MEDS ORDERED: Ondansetron 4 MG/2 ML SDV ONE (10:23)
[2020-11-15] MEDS ORDERED: Ketorolac 30 MG/ML SDV ONE (10:23)
--- NOTE | 2020-11-15 10:44 | PCM.POSTAN ---
POST ANESTHESIA ASSESSMENT - MENTAL STATUS Mental Status: Alert, Oriented - VITAL SIGNS Vital Signs: Last Vital Signs 93/61, 64 HR, 98% RA, 8RR, 97F - RESPIRATORY Respiratory Status: Respiratory Rate WNL, Airway Patent, O2 Saturation Stable - CARDIOVASCULAR CV Status: Pulse Rate WNL, Blood Pressure Stable - GASTROINTESTINAL GI Status: No Symptoms - PAIN Pain Score: 0 (post SAB) - POST OP HYDRATION Hydration Status: Adequate & Stable
--- NOTE | 2020-11-15 11:01 | PCM.OPNOTE ---
- General Post-Op/Procedure Note Date of Surgery/Procedure: 11/15/20 Operative Procedure(s): repeat section Findings: Viable female, weight 8lb8oz, 9/9 APGARS at 0959. Normal uterus tubes and ovaries. Pre Op Diagnosis: prior , desires repeat Post-Op Diagnosis: Same Anesthesia Technique: Spinal Primary Surgeon: Maribel Charles Production Sanitizer: Josiane Rowley Fluid Replacement, Intraop: 2,000 Output, Urine Amount: 75 EBL in mLs: 1,300 Complications: None Condition: Good Free Text/Narrative:: The patient was taken to the operating room where spinal anesthesia was dosed to surgical levels without difficulty. The patient was prepped and draped in the usual sterile fashion in the dorsal supine position with a leftward tilt. A Pfannenstiel skin incision was made with the scalpel and carried through to the underlying layer of fascia. The fascia was incised in the midline and extended laterally using Gong scissors. Jessica clamps were used to elevate the superior aspect of the fascial incision, which was elevated, and the underlying rectus muscles were dissected off bluntly and using Gong scissors. Attention was then turned to the inferior aspect of the fascial incision, which in similar fashion was grasped with Jessica clamps, elevated, and the underlying rectus muscles were dissected off bluntly and using the gong. The rectus muscles were dissected in the midline. The peritoneum was entered bluntly; this incision was extended superiorly and inferiorly with good visualization of the bladder. The bladder blade was inserted. The vesicouterine peritoneum was identified and entered sharply using Metzenbaum scissors. This incision was extended laterally and the bladder flap was created digitally. The bladder blade was reinserted. The lower uterine segment was incised in a transverse fashion using the scalpel and with digital traction. Clear fluid was noted. The was subsequently delivered by flexing the head to the incision. Body and shoulders followed without difficulty. The cord was clamped and cut. The was subsequently handed to the awaiting sample color maker whose presence had been requested.. The placenta was delivered spontaneously intact with a three-vessel cord noted. The uterus was exteriorized and cleared of all clots and debris. The uterine incision was repaired in 2 layers using 0 monocryl. Bleeding at left aspect rendered hemostatic with additional figure of 8 sutures and ginny seal. Hemostasis was visualized. Hemostasis was visualized bilaterally. The uterus was returned to the abdomen. The uterine incision was reexamined and it was noted to be hemostatic. The pelvis was copiously irrigated. The fascia was closed with 1 PDS suture, and the skin was closed with 3-0 monocryl. Sponge, lap, and instrument counts were correct x2. The patient was stable at the completion of the procedure and was subsequently transferred to the recovery room in stable condition.
--- NOTE | 2020-11-15 12:58 | PCM.SN.2 ---
- Free Text/Narrative Note: Called to evaluate patient with blood pressures lower had been prior and some light headedness. Blood pressures 46/38 and 56/21. Patient flat in bed talking comfortably. O- feeling tired. Vitals improving with IV fluid bolus. Abdomen - incision excellent. Dry. Abdomen soft. Appropriate post op tenderness. Fundus -2u. Minimal blood on pad. None expressed with fundal massage. A/P - hypotension - differential includes intraabdominal bleeding, uterine bleeding, spinal related hypotension or related to surgical blood loss. Suspect surgical blood loss and spinal. Will continue IVF bolus. Await h/h. Observe closely. Current bp 90/62
[2020-11-15] MEDS ORDERED: ePHEDrine 50 MG/ML SDV IVPUSH PRN (13:41)
[2020-11-15] MEDS ORDERED: Dextrose 5%-Lactated Ringers 1,000 ML IV SCH (13:41)
[2020-11-15] MEDS ORDERED: Naloxone 0.4 MG/ML SDV IVPUSH PRN (13:41)
[2020-11-15] MEDS: Simethicone 80 MG Tab.Chew PO SCH ×3 (13:51→21:08)
[2020-11-15] MEDS ORDERED: Lactated Ringers 1,000 ML IV SCH (16:45)
[2020-11-15] MEDS: Ibuprofen 600 MG Tab PO PRN (17:19)
[2020-11-15] MEDS ORDERED: Acetaminophen 325 MG Tab PO ONE (18:26)
[2020-11-15] MEDS ORDERED: Sodium Chloride 0.9% 1,000 ML IV SCH (18:30)
--- NOTE | 2020-11-15 20:17 | PCM.SN.2 ---
- Free Text/Narrative Note: S- Patient comfortable. No significant pain. Has been up at bedside. Some dizziness. O- Afebrile BP 99/74 now, have been 90-100/40-80. Not tachycardic. Abdomen soft, appropriately tender, not distended. UOP 30-45 mL/hr. A - Postop anemia. Had significant EBL with surgery. Minimal vaginal bleeding since. Given symptomatic anemia would benefit from transfusion. Will give 2u prbc. Patient voices understanding. P - 2u pRBC. Post cbc 2 hours postop. Will determine IVF then depending on UOP and BPs.
[2020-11-16] MEDS: Ibuprofen 600 MG Tab PO PRN ×3 (02:17→17:25)
[2020-11-16] MEDS: Acetaminophen/oxyCODONE 325-5 MG Tab PO PRN ×3 (06:50→21:24)
--- NOTE | 2020-11-16 06:59 | PCM.PNPP ---
- General Info Date of Service: 11/16/20 Subjective Update: Feeling much better. Pain controlled. No dizziness now. Minimal to no vaginal bleeding. - Review of Systems General: Reports: No Symptoms HEENT: Reports: No Symptoms Pulmonary: Reports: No Symptoms Cardiovascular: Reports: No Symptoms Gastrointestinal: Reports: No Symptoms Genitourinary: Reports: No Symptoms Musculoskeletal: Reports: No Symptoms Skin: Reports: No Symptoms Neurological: Reports: No Symptoms Psychiatric: Reports: No Symptoms - General Info Date of Service: 11/16/20 - Patient Data Vital Signs - Most Recent: Last Vital Signs Temp 37.1 C 11/16/20 03:42 Pulse 71 11/16/20 03:42 Resp 14 11/16/20 06:00 BP 92/52 L 11/16/20 03:42 Pulse Ox 97 11/16/20 06:00 Weight - Most Recent: 91 kg I&O - Last 24 Hours: Intake & Output 11/15/20 11/15/20 11/16/20 14:59 22:59 06:59 Intake Total 3050 2120 720 Output Total 887 179 2940 Balance 2840 1614 -955 Lab Results - Last 24 Hours: Laboratory Results - last 24 hr 11/15/20 11/15/20 11/15/20 Range/Units 07:47 08:07 08:07 WBC 6.34 (3.98-10.04) K/mm3 RBC 3.94 L (3.98-5.22) M/mm3 Hgb 11.9 (11.2-15.7) gm/dl Hct 35.2 (34.1-44.9) % MCV 89.3 (79.4-94.8) fl MCH 30.2 (25.6-32.2) pg MCHC 33.8 (32.2-35.5) g/dl RDW Std Deviation 42.4 (36.4-46.3) fL Plt Count 255 (182-369) K/mm3 MPV 10.0 (9.4-12.3) fl Neut % (Auto) 57.5 (34.0-71.1) % Lymph % (Auto) 33.0 (19.3-51.7) % Bond % (Auto) 7.7 (4.7-12.5) % Eos % (Auto) 1.4 (0.7-5.8) Baso % (Auto) 0.2 (0.1-1.2) % Neut # (Auto) 3.65 (1.56-6.13) K/mm3 Lymph # (Auto) 2.09 (1.18-3.74) K/mm3 Bond # (Auto) 0.49 H (0.24-0.36) K/mm3 Eos # (Auto) 0.09 (0.04-0.36) K/mm3 Baso # (Auto) 0.01 (0.01-0.08) K/mm3 RPR Non-reactive (NONREACTIVE) SARS-CoV-2 RNA (LJ) Negative (NEGATIVE) Blood Type Gel Antibody Screen Crossmatch 11/15/20 11/15/20 11/15/20 Range/Units 08:07 12:37 15:35 WBC 8.62 (3.98-10.04) K/mm3 RBC 2.64 L (3.98-5.22) M/mm3 Hgb 8.9 L D 7.9 L (11.2-15.7) gm/dl Hct 27.3 L 24.2 L (34.1-44.9) % MCV 91.7 (79.4-94.8) fl MCH 29.9 (25.6-32.2) pg MCHC 32.6 (32.2-35.5) g/dl RDW Std Deviation 42.2 (36.4-46.3) fL Plt Count 208 (182-369) K/mm3 MPV 10.0 (9.4-12.3) fl Neut % (Auto) (34.0-71.1) % Lymph % (Auto) (19.3-51.7) % Bond % (Auto) (4.7-12.5) % Eos % (Auto) (0.7-5.8) Baso % (Auto) (0.1-1.2) % Neut # (Auto) (1.56-6.13) K/mm3 Lymph # (Auto) (1.18-3.74) K/mm3 Bond # (Auto) (0.24-0.36) K/mm3 Eos # (Auto) (0.04-0.36) K/mm3 Baso # (Auto) (0.01-0.08) K/mm3 RPR (NONREACTIVE) SARS-CoV-2 RNA (LJ) (NEGATIVE) Blood Type O POSITIVE Gel Antibody Screen Negative Crossmatch See Detail 11/16/20 Range/Units 03:40 WBC 5.39 (3.98-10.04) K/mm3 RBC 2.83 L (3.98-5.22) M/mm3 Hgb 8.4 L (11.2-15.7) gm/dl Hct 25.9 L (34.1-44.9) % MCV 91.5 (79.4-94.8) fl MCH 29.7 (25.6-32.2) pg MCHC 32.4 (32.2-35.5) g/dl RDW Std Deviation 43.6 (36.4-46.3) fL Plt Count 173 L (182-369) K/mm3 MPV 9.5 (9.4-12.3) fl Neut % (Auto) 60.1 (34.0-71.1) % Lymph % (Auto) 32.1 (19.3-51.7) % Bond % (Auto) 6.7 (4.7-12.5) % Eos % (Auto) 0.7 (0.7-5.8) Baso % (Auto) 0.2 (0.1-1.2) % Neut # (Auto) 3.24 (1.56-6.13) K/mm3 Lymph # (Auto) 1.73 (1.18-3.74) K/mm3 Bond # (Auto) 0.36 (0.24-0.36) K/mm3 Eos # (Auto) 0.04 (0.04-0.36) K/mm3 Baso # (Auto) 0.01 (0.01-0.08) K/mm3 RPR (NONREACTIVE) SARS-CoV-2 RNA (LJ) (NEGATIVE) Blood Type Gel Antibody Screen Crossmatch Med Orders - Current: Current Medications Diphenhydramine HCl (Diphenhydramine 50 Mg/Ml Sdv) 25 mg IVPUSH Q6H PRN PRN Reason: Itching or Nausea Last Admin: 11/15/20 21:08 Dose: 25 mg Documented by: Ephedrine Sulfate (Ephedrine 50 Mg/Ml Sdv) 5 mg IVPUSH SEECOMMENT PRN PRN Reason: Other Lactated Ringer's (Ringers, Lactated) 1,000 mls @ 150 mls/hr IV ASDIRECTED [facility] Last Admin: 11/15/20 17:19 Dose: 150 mls/hr Documented by: Sodium Chloride (Normal Saline) 1,000 mls @ 125 mls/hr IV ASDIRECTED [facility] Ibuprofen (Ibuprofen 600 Mg Tab) 600 mg PO Q6H PRN PRN Reason: mild pain or fever Last Admin: 11/16/20 02:17 Dose: 600 mg Documented by: Naloxone HCl (Naloxone 0.4 Mg/Ml Sdv) 0.1 mg IVPUSH SEECOMMENT PRN PRN Reason: Respiratory Depression Oxycodone/Acetaminophen (Acetaminophen/Oxycodone 325-5 Mg Tab) 1 tab PO Q4H PRN PRN Reason: Pain (moderate 4-6) Last Admin: 11/16/20 06:50 Dose: 1 tab Documented by: Oxycodone/Acetaminophen (Acetaminophen/Oxycodone 325-5 Mg Tab) 2 tab PO Q4H PRN PRN Reason: Pain (severe 7-10) Simethicone (Simethicone 80 Mg Tab.Chew) 80 mg PO QID [facility] Last Admin: 11/15/20 21:08 Dose: 80 mg Documented by: Discontinued Medications Acetaminophen (Acetaminophen 325 Mg Tab) 650 mg PO NOW ONE Stop: 11/15/20 18:27 Last Admin: 11/15/20 21:06 Dose: 650 mg Documented by: Bupivacaine HCl (Bupivacaine 0.5% 30 Ml Sdv) Confirm Administered Dose 30 ml .ROUTE .STK-MED ONE Stop: 11/15/20 09:18 Last Admin: 11/15/20 09:52 Dose: 19 ml Documented by: Cefazolin Sodium (Cefazolin 1 Gm Vial) Confirm Administered Dose 2 gm .ROUTE .STK-MED ONE Stop: 11/15/20 09:20 Citric Acid/Sodium Citrate (Citric Acid/Sodium Citrate Solution 30 Ml Cup) 30 ml PO ONETIME ONE Stop: 11/15/20 08:32 Last Admin: 11/15/20 09:06 Dose: 30 ml Documented by: Diphenhydramine HCl (Diphenhydramine 50 Mg/Ml Sdv) 25 mg IVPUSH Q6H PRN PRN Reason: Pruritis Ephedrine Sulfate (Ephedrine 50 Mg/Ml Sdv) Confirm Administered Dose 50 mg .ROUTE .STK-MED ONE Stop: 11/15/20 09:55 Fentanyl (Fentanyl 100 Mcg/2 Ml Sdv) Confirm Administered Dose 100 mcg .ROUTE .STK-MED ONE Stop: 11/15/20 08:28 Fentanyl (Fentanyl 100 Mcg/2 Ml Sdv) 50 mcg IVPUSH Q5M PRN PRN Reason: Pain Glycopyrrolate (Glycopyrrolate 0.2 Mg/Ml 2 Ml Syringe) Confirm Administered Dose 0.4 mg .ROUTE .STK-MED ONE Stop: 11/15/20 09:50 Lactated Ringer's (Ringers, Lactated) Confirm Administered Dose 1,000 mls @ as directed .ROUTE .K-MED ONE Stop: 11/15/20 08:13 Last Admin: 11/15/20 08:17 Dose: 500 mls/hr Documented by: Lactated Ringer's (Ringers, Lactated) 1,000 mls @ 125 mls/hr IV [facility] Last Admin: 11/15/20 11:53 Dose: 125 mls/hr Documented by: Cefazolin Sodium/Dextrose 2 gm (/ Premix) 50 mls @ 100 mls/hr IV ONETIME ONE Stop: 11/15/20 09:00 Last Admin: 11/15/20 19:59 Dose: Not Given Documented by: Oxytocin/Lactated Ringer's (Pitocin In Lr 10 Units/1,000 Ml) 10 unit in 1,000 mls @ 100 [facility] Lactated Ringer's (Ringers, Lactated) Confirm Administered Dose 1,000 mls @ as directed .ROUTE .STK-MED ONE Stop: 11/15/20 10:04 Dextrose/Lactated Ringer's (Dextrose 5%-Lactated Ringers) 1,000 mls @ 125 [facility]ls[facility] Stop: 11/15/20 21:40 Last Admin: 11/15/20 13:53 Dose: 125 mls/hr Documented by: Ketorolac Tromethamine (Ketorolac 30 Mg/Ml Sdv) Confirm Administered Dose 30 mg .ROUTE .K-MED ONE Stop: 11/15/20 10:24 Metoclopramide HCl (Metoclopramide 10 Mg/2 Ml Sdv) 10 mg IVPUSH ONETIME ONE Stop: 11/15/20 08:32 Last Admin: 11/15/20 09:06 Dose: 10 mg Documented by: Miscellaneous Medication (Phenylephrine Hcl In 0.9% Nacl 1 Mg/10 Ml Syringe) Confirm Administered Dose 1 mg .ROUTE .STK-MED ONE Stop: 11/15/20 12:36 Morphine Sulfate (Morphine Pf 10 Mg/10 Ml Sdv) Confirm Administered Dose 10 mg .ROUTE .STK-MED ONE Stop: 11/15/20 08:28 Ondansetron HCl (Ondansetron 4 Mg/2 Ml Sdv) 4 mg IVPUSH ONETIME PRN PRN Reason: Nausea/Vomiting Last Admin: 11/15/20 12:35 Dose: 4 mg Documented by: Ondansetron HCl (Ondansetron 4 Mg/2 Ml Sdv) Confirm Administered Dose 8 mg .ROUTE .STK-MED ONE Stop: 11/15/20 10:24 Oxytocin (Oxytocin 10 Units/1 Ml Sdv) Confirm Administered Dose 20 unit .ROUTE .STK-MED ONE Stop: 11/15/20 09:20 Sodium Chloride (Sodium Chloride 0.9% 10 Ml Syringe) 10 ml FLUSH ASDIRECTED PRN PRN Reason: Keep Vein Open - Interaction Infant Disposition, : to Nursery Support Person: - Recovery Exam Fundal Tone: Firm Fundal Level: At Umbilicus Fundal Placement: Midline Lochia Amount: Small Lochia Color: Rubra/Red Perineum Description: Intact, Minimal Bruising/Swelling Bladder Status: Indwelling Catheter in Place Urinary Elimination: Indwelling Catheter - Exam General: Alert, Oriented HEENT: Pupils Equal Neck: Supple GI/Abdominal Exam: Normal Bowel Sounds, Soft, Non-Tender Extremities: Normal Inspection Neurological: No New Focal Deficit Psy/Mental Status: Alert, Normal Affect, Normal Mood - Problem List Review Problem List Initiated/Reviewed/Updated: Yes - My Orders Last 24 Hours: My Active Orders 11/15/20 08:07 HEP C VIRUS AB [REF] Stat 11/15/20 08:31 Resuscitation Status Routine 11/15/20 13:41 Acetaminophen/oxyCODONE [Percocet 325-5 MG] 1 tab PO Q4H PRN Acetaminophen/oxyCODONE [Percocet 325-5 MG] 2 tab PO Q4H PRN Naloxone [Narcan] 0.1 mg IVPUSH SEECOMMENT PRN Simethicone 80 mg PO QID diphenhydrAMINE [Benadryl] 25 mg IVPUSH Q6H PRN ePHEDrine [ePHEDrine sulfate] 5 mg IVPUSH SEECOMMENT PRN 11/15/20 13:41 Communication Order [RC] PER UNIT ROUTINE Communication Order [RC] PER UNIT ROUTINE Communication Order [RC] PER UNIT ROUTINE Notify Provider Intake and Out [RC] ASDIRECTED Vital Signs [RC] Q1HR Assess Lochia [WOMSER] Per Unit Routine Assess Uterine Involution [WOMSER] Per Unit Routine Medication Administration Instruction [OM.PC] Routine 11/15/20 16:30 Ibuprofen [Motrin] 600 mg PO Q6H PRN 11/15/20 16:45 Lactated Ringers [Ringers, Lactated] 1,000 ml IV ASDIRECTED 11/15/20 Dinner Regular Diet [DIET] 11/15/20 18:26 Transfuse Red Blood Cells [COMM] Routine 11/15/20 18:30 Sodium Chloride 0.9% [Normal Saline] 1,000 ml IV ASDIRECTED 11/16/20 11:02 Urinary Catheter Removal [RC] Per Unit Routine - Assessment Assessment:: anemia improved symptoms with 2 units pRBCs. Minimal to no vaginal bleeding. CBC pending.
--- NOTE | 2020-11-16 07:29 | PCM48HPAN ---
Post Anesthesia Note - EVALUATION WITHIN 48HRS OF ANESTHETIC Vital Signs in Normal Range: Yes Patient Participated in Evaluation: Yes Respiratory Function Stable: Yes Airway Patent: Yes Cardiovascular Function Stable: Yes Hydration Status Stable: Yes Pain Control Satisfactory: Yes Nausea and Vomiting Control Satisfactory: Yes Mental Status Recovered: Yes (sitting up in bed holding baby) Vital Signs: Last Vital Signs Temp 98.8 F 11/16/20 03:42 Pulse 71 11/16/20 03:42 Resp 14 11/16/20 07:00 BP 92/52 L 11/16/20 03:42 Pulse Ox 98 11/16/20 07:00
[2020-11-16] MEDS: Simethicone 80 MG Tab.Chew PO SCH ×3 (10:04→17:25)
[2020-11-16] MEDS ORDERED: Docusate Sodium 100 MG Cap PO PRN (11:34)
[2020-11-16] MEDS: Docusate Sodium 100 MG Cap PO SCH ×2 (13:30→21:24)
[2020-11-17] MEDS: Ibuprofen 600 MG Tab PO PRN ×3 (01:11→17:23)
[2020-11-17] MEDS: Acetaminophen/oxyCODONE 325-5 MG Tab PO PRN ×3 (01:11→17:25)
[2020-11-17] MEDS: Simethicone 80 MG Tab.Chew PO SCH ×4 (05:32→18:04)
--- NOTE | 2020-11-17 07:35 | PCM.PNPP ---
- General Info Date of Service: 11/17/20 Functional Status: Reports: Pain Controlled, Tolerating Diet, Ambulating, Urinating - Review of Systems General: Reports: No Symptoms Pulmonary: Reports: No Symptoms Cardiovascular: Reports: No Symptoms Gastrointestinal: Reports: No Symptoms Genitourinary: Reports: No Symptoms Musculoskeletal: Reports: No Symptoms - Patient Data Vital Signs - Most Recent: Last Vital Signs Temp 36.3 C 11/17/20 02:07 Pulse 71 11/17/20 02:07 Resp 15 11/17/20 02:07 BP 106/70 11/17/20 02:07 Pulse Ox 99 11/17/20 02:07 Weight - Most Recent: 91 kg I&O - Last 24 Hours: Intake & Output 11/16/20 11/17/20 11/17/20 22:59 06:59 14:59 Intake Total 320 Output Total 500 Balance -180 Lab Results - Last 24 Hours: Laboratory Results - last 24 hr 11/15/20 Range/Units 08:07 Hepatitis C Antibody <0.1 (0.0-0.9) s/co ratio Med Orders - Current: Current Medications Diphenhydramine HCl (Diphenhydramine 50 Mg/Ml Sdv) 25 mg IVPUSH Q6H PRN PRN Reason: Itching or Nausea Last Admin: 11/15/20 21:08 Dose: 25 mg Documented by: Docusate Sodium (Docusate Sodium 100 Mg Cap) 100 mg PO BID [facility] Last Admin: 11/16/20 21:24 Dose: 100 mg Documented by: Ephedrine Sulfate (Ephedrine 50 Mg/Ml Sdv) 5 mg IVPUSH SEECOMMENT PRN PRN Reason: Other Lactated Ringer's (Ringers, Lactated) 1,000 mls @ 150 mls/hr IV ASDIRECTED [facility] Last Admin: 11/15/20 17:19 Dose: 150 mls/hr Documented by: Sodium Chloride (Normal Saline) 1,000 mls @ 125 mls/hr IV ASDIRECTED [facility] Last Admin: 11/15/20 21:30 Dose: 125 mls/hr Documented by: Ibuprofen (Ibuprofen 600 Mg Tab) 600 mg PO Q6H PRN PRN Reason: mild pain or fever Last Admin: 11/17/20 01:11 Dose: 600 mg Documented by: Naloxone HCl (Naloxone 0.4 Mg/Ml Sdv) 0.1 mg IVPUSH SEECOMMENT PRN PRN Reason: Respiratory Depression Oxycodone/Acetaminophen (Acetaminophen/Oxycodone 325-5 Mg Tab) 1 tab PO Q4H PRN PRN Reason: Pain (moderate 4-6) Last Admin: 11/17/20 01:11 Dose: 1 tab Documented by: Oxycodone/Acetaminophen (Acetaminophen/Oxycodone 325-5 Mg Tab) 2 tab PO Q4H PRN PRN Reason: Pain (severe 7-10) Simethicone (Simethicone 80 Mg Tab.Chew) 80 mg PO QID [facility] Last Admin: 11/17/20 05:32 Dose: Not Given Documented by: Discontinued Medications Acetaminophen (Acetaminophen 325 Mg Tab) 650 mg PO NOW ONE Stop: 11/15/20 18:27 Last Admin: 11/15/20 21:06 Dose: 650 mg Documented by: Bupivacaine HCl (Bupivacaine 0.5% 30 Ml Sdv) Confirm Administered Dose 30 ml .ROUTE .STK-MED ONE Stop: 11/15/20 09:18 Last Admin: 11/15/20 09:52 Dose: 19 ml Documented by: Cefazolin Sodium (Cefazolin 1 Gm Vial) Confirm Administered Dose 2 gm .ROUTE .STK-MED ONE Stop: 11/15/20 09:20 Citric Acid/Sodium Citrate (Citric Acid/Sodium Citrate Solution 30 Ml Cup) 30 ml PO ONETIME ONE Stop: 11/15/20 08:32 Last Admin: 11/15/20 09:06 Dose: 30 ml Documented by: Diphenhydramine HCl (Diphenhydramine 50 Mg/Ml Sdv) 25 mg IVPUSH Q6H PRN PRN Reason: Pruritis Ephedrine Sulfate (Ephedrine 50 Mg/Ml Sdv) Confirm Administered Dose 50 mg .ROUTE .STK-MED ONE Stop: 11/15/20 09:55 Fentanyl (Fentanyl 100 Mcg/2 Ml Sdv) Confirm Administered Dose 100 mcg .ROUTE .STK-MED ONE Stop: 11/15/20 08:28 Fentanyl (Fentanyl 100 Mcg/2 Ml Sdv) 50 mcg IVPUSH Q5M PRN PRN Reason: Pain Glycopyrrolate (Glycopyrrolate 0.2 Mg/Ml 2 Ml Syringe) Confirm Administered Dose 0.4 mg .ROUTE .STK-MED ONE Stop: 11/15/20 09:50 Lactated Ringer's (Ringers, Lactated) Confirm Administered Dose 1,000 mls @ as directed .ROUTE .[facility] ONE Stop: 11/15/20 08:13 Last Admin: 11/15/20 08:17 Dose: 500 mls/hr Documented by: Lactated Ringer's (Ringers, Lactated) 1,000 mls @ 125 mls/hr IV ASDIRECTED [facility] Last Admin: 11/15/20 11:53 Dose: 125 mls/hr Documented by: Cefazolin Sodium/Dextrose 2 gm (/ Premix) 50 mls @ 100 mls/hr IV ONETIME ONE Stop: 11/15/20 09:00 Last Admin: 11/15/20 19:59 Dose: Not Given Documented by: Oxytocin/Lactated Ringer's (Pitocin In Lr 10 Units/1,000 Ml) 10 unit in 1,000 mls @ 100 [facility]ls[facility] Lactated Ringer's (Ringers, Lactated) Confirm Administered Dose 1,000 mls @ as directed .ROUTE .[facility] ONE Stop: 11/15/20 10:04 Dextrose/Lactated Ringer's (Dextrose 5%-Lactated Ringers) 1,000 mls @ 125 mls/hr IV ASDIRECTED [facility] Stop: 11/15/20 21:40 Last Admin: 11/15/20 13:53 Dose: 125 mls/hr Documented by: Ketorolac Tromethamine (Ketorolac 30 Mg/Ml Sdv) Confirm Administered Dose [address] ONE Stop: 11/15/20 10:24 Metoclopramide HCl (Metoclopramide 10 Mg/2 Ml Sdv) 10 mg IVPUSH ONETIME ONE Stop: 11/15/20 08:32 Last Admin: 11/15/20 09:06 Dose: 10 mg Documented by: Miscellaneous Medication (Phenylephrine Hcl In 0.9% Nacl 1 Mg/10 Ml Syringe) Confirm Administered Dose [address] ONE Stop: 11/15/20 12:36 Morphine Sulfate (Morphine Pf 10 Mg/10 Ml Sdv) Confirm Administered Dose [address] ONE Stop: 11/15/20 08:28 Ondansetron HCl (Ondansetron 4 Mg/2 Ml Sdv) 4 mg IVPUSH ONETIME PRN PRN Reason: Nausea/Vomiting Last Admin: 11/15/20 12:35 Dose: 4 mg Documented by: Ondansetron HCl (Ondansetron 4 Mg/2 Ml Sdv) Confirm Administered Dose 8 mg .ROUTE .STK-MED ONE Stop: 11/15/20 10:24 Oxytocin (Oxytocin 10 Units/1 Ml Sdv) Confirm Administered Dose 20 unit .ROUTE .STK-MED ONE Stop: 11/15/20 09:20 Sodium Chloride (Sodium Chloride 0.9% 10 Ml Syringe) 10 ml FLUSH ASDIRECTED PRN PRN Reason: Keep Vein Open - Interaction Infant Disposition, : to Nursery Infant Interaction: Holding Infant Infant Feeding: Breastfed ; Nursed Well Support Person: - Recovery Exam Fundal Tone: Firm Fundal Level: 1 Fingerbreadths Below Umbilicus Fundal Placement: Midline Lochia Amount: Small Lochia Color: Rubra/Red Perineum Description: Intact, Minimal Bruising/Swelling Episiotomy/Laceration: None Bladder Status: Voiding Urinary Elimination: Voided - Exam General: Alert, Oriented, Cooperative Lungs: Clear to Auscultation, Normal Respiratory Effort Cardiovascular: Regular Rate, Regular Rhythm GI/Abdominal Exam: Soft, Non-Tender Extremities: Normal Inspection Skin: Warm, Dry, Intact Wound/Incisions: Healing Well, No Drainage - Problem List & Annotations (1) 39 weeks gestation of SNOMED Code(s): 61326439 Code(s): Z3A.39 - 39 WEEKS GESTATION OF Status: Acute Current Visit: No (2) delivery delivered SNOMED Code(s): 958577646 Code(s): O82 - ENCOUNTER FOR DELIVERY WITHOUT INDICATION Status: Acute Current Visit: No - Problem List Review Problem List Initiated/Reviewed/Updated: Yes - Assessment Assessment:: POD#2 - Plan Plan:: Routine cares CBC this AM with stable Hb Patient feels well Discharge to home
--- NOTE | 2020-11-17 07:36 | PCM.DCSUM1 ---
Discharge Summary - Discharge Data Discharge Date: 11/17/20 Discharge Disposition: Home, Self-Care 01 Condition: Good - Referral to Home Health Primary Care Physician: Maribel Charles MD - Discharge Diagnosis/Problem(s) (1) 39 weeks gestation of SNOMED Code(s): 90258636 ICD Code: Z3A.39 - 39 WEEKS GESTATION OF Status: Acute Current Visit: No (2) delivery delivered SNOMED Code(s): 188080248 ICD Code: O82 - ENCOUNTER FOR DELIVERY WITHOUT INDICATION Status: Acute Current Visit: No - Patient Summary/Data Operative Procedure(s) Performed: repeat section Complications: None Consults: None Recommended Follow-up Testing/Procedures: Follow up in 3 weeks for check Hospital Course: 40 y/o presented at 39 weeks for planned RLTCS. Surgery notable for EBL of 1300. Postop patient symptomatic and with low Hb and so given 2 units PRBC's. Responded well to this intervention. Otherwise had uncomplicated post op course and was discharged home on POD#2 - Patient Instructions Diet: Regular Diet as Tolerated Activity: No Lifting Over 10 Pounds Activity, Other: Pelvic rest for 6 weeks Driving: May Drive Today Showering/Bathing: No Tub Bathing/Swimming Wound/Incision Care: Keep Operative Site/Wound Site Clean and Dry Notify Provider of: Fever, Increased Pain, Swelling and Redness, Drainage, Nausea and/or Vomiting - Discharge Plan *PRESCRIPTION DRUG MONITORING PROGRAM REVIEWED*: No *COPY OF PRESCRIPTION DRUG MONITORING REPORT IN PATIENT CLYDE: No Prescriptions/Med Rec: Acetaminophen/oxyCODONE [Percocet 325-5 MG] 1 - 2 tab PO Q4H PRN #25 tablet PRN Reason: Pain (Severe 7-10) Home Medications: Home Meds Pnv No.95/Ferrous Fum/Folic AC [ Vitamin Tablet] 1 each PO DAILY 11/15/20 [History] Acetaminophen/oxyCODONE [Percocet 325-5 MG] 1 - 2 tab PO Q4H PRN #25 tablet 11/16/20 [Rx] Docusate Sodium [Colace] 100 mg PO BID cap 11/16/20 [Rx] Ibuprofen [Motrin] 600 mg PO Q6H PRN tablet 11/16/20 [Rx] Referrals: Maribel Charles MD [Primary Care Provider] - (3-6 weeks for check ) - Discharge Summary/Plan Comment DC Time >30 min.: No - Patient Data Vitals - Most Recent: Last Vital Signs Temp 36.3 C 11/17/20 02:07 Pulse 71 11/17/20 02:07 Resp 15 11/17/20 02:07 BP 106/70 11/17/20 02:07 Pulse Ox 99 11/17/20 02:07 Weight - Most Recent: 91 kg I&O - Last 24 hours: Intake & Output 11/16/20 11/17/20 11/17/20 22:59 06:59 14:59 Intake Total 320 Output Total 500 Balance -180 Lab Results - Last 24 hrs: Laboratory Results - last 24 hr 11/15/20 11/17/20 Range/Units 08:07 07:30 WBC 6.56 (3.98-10.04) K/mm3 RBC 2.73 L (3.98-5.22) M/mm3 Hgb 8.1 L (11.2-15.7) gm/dl Hct 25.1 L (34.1-44.9) % MCV 91.9 (79.4-94.8) fl MCH 29.7 (25.6-32.2) pg MCHC 32.3 (32.2-35.5) g/dl RDW Std Deviation 47.1 H (36.4-46.3) fL Plt Count 209 (182-369) K/mm3 MPV 9.1 L (9.4-12.3) fl Hepatitis C Antibody <0.1 (0.0-0.9) s/co ratio Med Orders - Current: Current Medications Diphenhydramine HCl (Diphenhydramine 50 Mg/Ml Sdv) 25 mg IVPUSH Q6H PRN PRN Reason: Itching or Nausea Last Admin: 11/15/20 21:08 Dose: 25 mg Documented by: Docusate Sodium (Docusate Sodium 100 Mg Cap) 100 mg PO BID MOOKIE Last Admin: 11/16/20 21:24 Dose: 100 mg Documented by: Ephedrine Sulfate (Ephedrine 50 Mg/Ml Sdv) 5 mg IVPUSH SEECOMMENT PRN PRN Reason: Other Lactated Ringer's (Ringers, Lactated) 1,000 mls @ 150 mls/hr IV ASDIRECTED [facility] Last Admin: 11/15/20 17:19 Dose: 150 mls/hr Documented by: Sodium Chloride (Normal Saline) 1,000 mls @ 125 mls/hr IV ASDIRECTED [facility] Last Admin: 11/15/20 21:30 Dose: 125 mls/hr Documented by: Ibuprofen (Ibuprofen 600 Mg Tab) 600 mg PO Q6H PRN PRN Reason: mild pain or fever Last Admin: 11/17/20 01:11 Dose: 600 mg Documented by: Naloxone HCl (Naloxone 0.4 Mg/Ml Sdv) 0.1 mg IVPUSH SEECOMMENT PRN PRN Reason: Respiratory Depression Oxycodone/Acetaminophen (Acetaminophen/Oxycodone 325-5 Mg Tab) 1 tab PO Q4H PRN PRN Reason: Pain (moderate 4-6) Last Admin: 11/17/20 01:11 Dose: 1 tab Documented by: Oxycodone/Acetaminophen (Acetaminophen/Oxycodone 325-5 Mg Tab) 2 tab PO Q4H PRN PRN Reason: Pain (severe 7-10) Simethicone (Simethicone 80 Mg Tab.Chew) 80 mg PO QID [facility] Last Admin: 11/17/20 05:32 Dose: Not Given Documented by: Discontinued Medications Acetaminophen (Acetaminophen 325 Mg Tab) 650 mg PO NOW ONE Stop: 11/15/20 18:27 Last Admin: 11/15/20 21:06 Dose: 650 mg Documented by: Bupivacaine HCl (Bupivacaine 0.5% 30 Ml Sdv) Confirm Administered Dose 30 ml .ROUTE .STK-MED ONE Stop: 11/15/20 09:18 Last Admin: 11/15/20 09:52 Dose: 19 ml Documented by: Cefazolin Sodium (Cefazolin 1 Gm Vial) Confirm Administered Dose 2 gm .ROUTE .STK-MED ONE Stop: 11/15/20 09:20 Citric Acid/Sodium Citrate (Citric Acid/Sodium Citrate Solution 30 Ml Cup) 30 ml PO ONETIME ONE Stop: 11/15/20 08:32 Last Admin: 11/15/20 09:06 Dose: 30 ml Documented by: Diphenhydramine HCl (Diphenhydramine 50 Mg/Ml Sdv) 25 mg IVPUSH Q6H PRN PRN Reason: Pruritis Ephedrine Sulfate (Ephedrine 50 Mg/Ml Sdv) Confirm Administered Dose 50 mg .ROUTE .STK-MED ONE Stop: 11/15/20 09:55 Fentanyl (Fentanyl 100 Mcg/2 Ml Sdv) Confirm Administered Dose 100 mcg .ROUTE .STK-MED ONE Stop: 11/15/20 08:28 Fentanyl (Fentanyl 100 Mcg/2 Ml Sdv) 50 mcg IVPUSH Q5M PRN PRN Reason: Pain Glycopyrrolate (Glycopyrrolate 0.2 Mg/Ml 2 Ml Syringe) Confirm Administered Dose 0.4 mg .ROUTE .STK-MED ONE Stop: 11/15/20 09:50 Lactated Ringer's (Ringers, Lactated) Confirm Administered Dose 1,000 mls @ as directed .ROUTE .[facility]-MED ONE Stop: 11/15/20 08:13 Last Admin: 11/15/20 08:17 Dose: 500 mls/hr Documented by: Lactated Ringer's (Ringers, Lactated) 1,000 mls @ 125 [facility] Last Admin: 11/15/20 11:53 Dose: 125 mls/hr Documented by: Cefazolin Sodium/Dextrose 2 gm (/ Premix) 50 mls @ 100 mls/hr IV ONETIME ONE Stop: 11/15/20 09:00 Last Admin: 11/15/20 19:59 Dose: Not Given Documented by: Oxytocin/Lactated Ringer's (Pitocin In Lr 10 Units/1,000 Ml) 10 unit in 1,000 mls @ 100 mls[facility]hr [facility] Lactated Ringer's (Ringers, Lactated) Confirm Administered Dose 1,000 mls @ as directed .ROUTE .STK-MED ONE Stop: 11/15/20 10:04 Dextrose/Lactated Ringer's (Dextrose 5%-Lactated Ringers) 1,000 mls @ 125 mls[facility]hr [facility] Stop: 11/15/20 21:40 Last Admin: 11/15/20 13:53 Dose: 125 mls/hr Documented by: Ketorolac Tromethamine (Ketorolac 30 Mg/Ml Sdv) Confirm Administered Dose 30 mg .ROUTE .STK-MED ONE Stop: 11/15/20 10:24 Metoclopramide HCl (Metoclopramide 10 Mg/2 Ml Sdv) 10 mg IVPUSH ONETIME ONE Stop: 11/15/20 08:32 Last Admin: 11/15/20 09:06 Dose: 10 mg Documented by: Miscellaneous Medication (Phenylephrine Hcl In 0.9% Nacl 1 Mg/10 Ml Syringe) Confirm Administered Dose 1 mg .ROUTE .STK-MED ONE Stop: 11/15/20 12:36 Morphine Sulfate (Morphine Pf 10 Mg/10 Ml Sdv) Confirm Administered Dose 10 mg .ROUTE .STK-MED ONE Stop: 11/15/20 08:28 Ondansetron HCl (Ondansetron 4 Mg/2 Ml Sdv) 4 mg IVPUSH ONETIME PRN PRN Reason: Nausea/Vomiting Last Admin: 11/15/20 12:35 Dose: 4 mg Documented by: Ondansetron HCl (Ondansetron 4 Mg/2 Ml Sdv) Confirm Administered Dose 8 mg .ROUTE .STK-MED ONE Stop: 11/15/20 10:24 Oxytocin (Oxytocin 10 Units/1 Ml Sdv) Confirm Administered Dose 20 unit .ROUTE .STK-MED ONE Stop: 11/15/20 09:20 Sodium Chloride (Sodium Chloride 0.9% 10 Ml Syringe) 10 ml FLUSH ASDIRECTED PRN PRN Reason: Keep Vein Open
[2020-11-17] MEDS: Docusate Sodium 100 MG Cap PO SCH (08:14)
[2020-11-17] MEDS ORDERED: Polyethylene Glycol 3350 Powder 17 GM Packet PO SCH (09:00)
[2020-11-17 15:09] VITALS: BP 110/55; PULSE 89
== END 2020-11-17 18:00 | disposition home or self-care (01) | DRG 788 ==
LOC: JD.OB 06:24
PROVIDERS: ADMIT Obstetrics & Gynecology; ATTEND Obstetrics & Gynecology
PROC: 10D00Z1 Extraction of Products of Conception, Low, Open Approach (ICD-10-PCS; principal; 2020-11-15)
PROC: 30233N1 Transfusion of Nonautologous Red Blood Cells into Peripheral Vein, Percutaneous Approach (ICD-10-PCS; 2020-11-16)
DX: O34.211 Maternal care for low transverse scar from previous cesarean delivery (principal); Z3A.39 39 weeks gestation of pregnancy; Z37.0 Single live birth; O99.02 Anemia complicating childbirth; D64.9 Anemia, unspecified; I95.9 Hypotension, unspecified; Z20.822 Contact with and (suspected) exposure to COVID-19
CPT/HCPCS: 01961; 36415; 36430; 59025; 85014; 85018; 85025; 85027; 86592; 86803; 86850; 86900; 86901; 86922; 94762; A9270-GY; J0690; J1200; J1885; J2270; J2370; J2405; J2590; J2765; J3010; J3490; J7030; J7120; J7121; P9016; U0002